=== PATIENT | female | born 1995 | race American Indian/Alaskan Native ===

== ENCOUNTER 2017-01-16 09:29 | Emergency (ER) | payer MEDICAID ==
[2017-01-16 11:45] VITALS: BP 157/84
== END 2017-01-16 11:43 | disposition left against medical advice (07) ==
LOC: ED 09:29
DX: R05 Cough (principal); Z53.21 Procedure and treatment not carried out due to patient leaving prior to being seen by health care provider

== ENCOUNTER 2018-04-09 02:18 | Emergency (ER) | payer MEDICAID, OTHER ==
[2018-04-09 06:56] LABS: HCG Qualitative,Urine Negative (Negative)
--- NOTE | 2018-04-09 07:35 | Cat Scan Report ---
FINAL REPORT EXAM: CT HEAD/BRAIN WO CON HISTORY: possible loc after smoking weed TECHNIQUE: Routine imaging was obtained of the brain without IV contrast. FINDINGS: The ventricular system is appropriate in size and is symmetric. There is no evidence of acute stroke or hemorrhage. The basal cisterns appear normal. The visualized sinuses are clear. The mastoid air ce lls are well pneumatized. The calvarium appears intact. IMPRESSION: Within normal limits
--- NOTE | 2018-04-09 08:03 | Emergency Department Report ---
Addendum entered and electronically signed by JAKUB LOPEZ PA 04/09/18 08:06: The cannabis utilize was not synthetic Original Note: ED General Adult HPI - General Chief complaint: Headache Stated complaint: HEADACHE/WEAKNESS Time Seen by Provider: 04/09/18 03:26 Source: patient Mode of arrival: Ambulatory Limitations: No Limitations - History of Present Illness Initial comments: 22-year-old female to emergency Department complaining of a dull throbbing headache and almost sensation of weakness and feeling jittery after smoking cannabis with her friends. Patient states at that she smoked cannabis. She went home and laid on the bed and felt very stiff and her mom told her that she likely had a seizure so she needs to go to the hospital to be evaluated for seizure activity after smoking cannabis because cannabis can sometimes cause seizures. She reports having no previous seizure history and on no prescribed medication. She denies any loss of bowel or bladder. There was no tongue biting and states that she can recall the entire incident of the reported stiffness that she felt. She states that there was no uniform shaking or uncontrolled convulsive type activity. No change in speech, no unilateral weakness, no sweats and no state of confusion. -: Sudden Location: head Radiation: non-radiation Consistency: constant Improves with: none Worsens with: none Associated Symptoms: denies: confusion, chest pain, cough, diaphoresis, loss of appetite, malaise, nausea/vomiting, syncope, weakness Treatments Prior to Arrival: none - Related Data Allergies Allergy/AdvReac Type Severity Reaction Status Date / Time No Known Allergies Allergy Unverified 11/20/15 18:46 ED Review of Systems ROS: Stated complaint: HEADACHE/WEAKNESS Other details as noted in HPI Constitutional: denies: chills, fever Eyes: denies: eye pain, eye discharge, vision change ENT: denies: ear pain, throat pain Respiratory: denies: cough, shortness of breath, wheezing Cardiovascular: denies: chest pain, palpitations Endocrine: no symptoms reported Gastrointestinal: denies: abdominal pain, nausea, diarrhea Genitourinary: denies: urgency, dysuria, discharge Musculoskeletal: denies: back pain, joint swelling, arthralgia Skin: denies: rash, lesions Neurological: denies: headache, weakness, paresthesias Psychiatric: denies: anxiety, depression Hematological/Lymphatic: denies: easy bleeding, easy bruising ED Past Medical Hx - Past Medical History Previous Medical History?: Yes Hx Hypertension: No Hx Diabetes: No Hx Deep Vein Thrombosis: No Hx Renal Disease: No Hx Sickle Cell Disease: No Hx Seizures: No Hx Asthma: Yes (CHILDHOOD) Hx HIV: No - Surgical History Past Surgical History?: No - Social History Smoking Status: Current Every Day Smoker Substance Use Type: None ED Physical Exam - General Limitations: No Limitations General appearance: alert, in no apparent distress - Head Head exam: Present: atraumatic, normocephalic - Eye Eye exam: Present: normal appearance, PERRL, EOMI, other (funduscopic examination. She tracks well with her pupils. Pupils.) Pupils: Present: normal accommodation - ENT ENT exam: Present: normal exam, mucous membranes moist - Neck Neck exam: Present: normal inspection, full ROM - Respiratory Respiratory exam: Present: normal lung sounds bilaterally. Absent: respiratory distress - Cardiovascular Cardiovascular Exam: Present: regular rate, normal rhythm. Absent: systolic murmur, diastolic murmur, rubs, gallop - GI/Abdominal GI/Abdominal exam: Present: soft, normal bowel sounds - Extremities Exam Extremities exam: Present: normal inspection, normal capillary refill - Back Exam Back exam: Present: normal inspection - Neurological Exam Neurological exam: Present: alert, oriented X3, CN II-XII intact, normal gait, other (gait, coordination, and small no ataxia, no facial asymmetry. Speech is normal) - Psychiatric Psychiatric exam: Present: normal affect, normal mood - Skin Skin exam: Present: warm, dry, intact, normal color. Absent: rash ED Course Vital Signs 04/09/18 02:28 Temperature 98.5 F Pulse Rate 72 Respiratory 16 Rate Blood Pressure 111/70 O2 Sat by Pulse 100 Oximetry ED Medical Decision Making - Radiology Data Radiology results: report reviewed (CT scan of the head is negative for any acute processes) - Medical Decision Making 22-year-old female does present to the emergency department after a night of smoking. We and having sensations of a dull headache. He has been weakness associated with some nausea. States she had a period this, if this but no witnessed seizure activity and and does not recall or does not describe any post ictal soreness or postictal state. There is no seizure history in is no seizure activity witnessed throughout the emergency department visit. She behave normally. She was alert and and oriented. Critical care attestation.: If time is entered above; I have spent that time in minutes in the direct care of this critically ill patient, excluding procedure time. ED Disposition Clinical Impression: Headache, Cannabis abuse with intoxication Disposition: DC-01 TO HOME OR SELFCARE Is pt being admited?: No Does the pt Need Aspirin: No Condition: Stable Instructions: Acute Headache (ED), Cannabis Abuse (ED)
[2018-04-09 08:31] VITALS: BP 111/67
== END 2018-04-09 08:19 | disposition home or self-care (01) ==
LOC: ED 02:18
DX: R51 Headache (principal); F12.120 Cannabis abuse with intoxication, uncomplicated; J45.909 Unspecified asthma, uncomplicated; F17.200 Nicotine dependence, unspecified, uncomplicated
CPT/HCPCS: 70450; 81025